=== PATIENT | female | born 1980 | race Caucasian/White ===

== ENCOUNTER 2017-06-19 04:44 | Emergency (ER) | payer OTHER ==
[2017-06-19] MEDS ORDERED: ACETAMINOPHEN 325 MG TABLET (FP) ONE (05:13)
[2017-06-19] MEDS ORDERED: ACETAMINOPHEN 325 MG TABLET (FP) PO ONE (05:13)
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
[2017-06-19 05:29] VITALS: BP 129/91; PULSE 81; TEMP 97.6; BMI 30.9
== END 2017-06-19 05:30 | disposition home or self-care (01) ==
LOC: JER 04:44
DX: G44.89 Other headache syndrome (principal); V44.5XXA Car driver injured in collision with heavy transport vehicle or bus in traffic accident, initial encounter; Y92.488 Other paved roadways as the place of occurrence of the external cause; Y93.89 Activity, other specified; Y99.8 Other external cause status
CPT/HCPCS: 99281-25